=== PATIENT | female | born 1960 | race Caucasian/White ===

== ENCOUNTER 2016-07-25 15:03 | Emergency (ER) | payer BC ==
[2016-07-25 15:07] VITALS: BP 128/85; BMI 30.7
--- NOTE | 2016-07-25 15:15 | DR.GENAD ---
HPI - PCP Primary Care Physician: MOHSEN - HPI Comment HPI Comment: PATIENT DENIES INJURY. PAIN GETTING WORSE. - Complaint/Symptoms Chief Complaint Doctors Comments: RIGHT RIB PAIN TIMES 5 DAYS. Chief Complaint:: PT. C/O LEFT SIDED RIB PAIN X 5 DAYS. PT. DENIES INJURY. PT. SAYS THE PAIN HAS WORSENED SINCE ONSET AND WHEN SHE BENDS OVER, IT FEELS LIKE SOMETHING IS POPPING. - Nurses notes reviewed Nurses Notes Review: Yes - Source History Provided: Patient - Mode of Arrival Mode of Arrival: Ambulatory - Timing Onset of Chief Complaint: 07/20/16 Came on: Suddenly - Duration Duration: Constant Duration: Days - Severity Severity: Moderate PMH - PMH Past Medical History: Yes Past Medical History: Arthritis, Diabetes, Hypertension Past Surgical History: Yes Surgical History: Cholecystectomy, Hysterectomy, Tonsillectomy - Family History History of Family Medical Conditions: Yes Family Medical History: Diabetes Mellitus, Coronary Artery Disease, Hypertension - Social History Does patient currently use any type of tobacco product: No Have you used tobacco products in the last 12 months: No Type of Tobacco Use: None Does any household member use tobacco: No Alcohol Use: None Do you use any recreational Drugs:: No Lives With: Spouse Lives Where: Home - infectious screening In the last 2 months have you had wt loss of >10#?: NO Have you had fever, night sweats or hemotysis?: No Have you traveled outside the country in the last 6 months?: No Isolation: Standard ROS - Review of Systems Constitutional: No Symptoms Reported Eyes: No Symptoms Reported ENTM: No Symptoms Reported Respiratoy: Short of Breath. negative: Productive Cough, Non-Productive Cough, Wheezing, Hemoptysis Cardiovascular: Chest Pain (RT RIB PAIN). negative: Edema, Palpitations Gastrointestinal/Abdominal: No Symptoms Reported Genitourinary: No Symptoms Reported Neurological: No Symptoms Reported Musculoskeletal: No Symptoms Reported Integumentary: No Symptoms Reported Hematologic/Lymphatic: No Symptoms Reported Endocrine: No Symptoms Reported All Other Systems: Reviewed and Negative PE - Vital Signs Vitals: Temperature 98.0 F Pulse Rate 101 Respiratory Rate 17 Blood Pressure 128/85 O2 Sat by Pulse Oximetry 97 - General Limitations: No Limitations General Appearance: Alert - Head Head Exam: Normal Inspection - Eyes Eye exam: Normal Appearance - ENT ENT Exam: Normal External Ear Exam External Ear Exam: Normal External Inspection TM/Canal Exam: Bilateral Normal Nose Exam: Normal Nose Exam Mouth Exam: Normal Inspection Throat Exam: Normal Inspection - Neck Neck Exam: Trachea Midline - Chest Chest Inspection: Symmetric Chest Wall Rise, Tenderness - Respiratory Respiratory Exam: Normal Lung Sounds Bilat, Chest Wall Tenderness Respiratory Exam: Bilateral Clear to Auscultation - Cardiovascular Cardiovascular Exam: Regular Rate, Normal Rhythm, Normal Heart Sounds - Abdominal Exam Abdominal Exam: Normal Bowel Sounds, Soft, Tenderness Abdominal Tenderness: LUQ - Extremities Extremities Exam: Normal Inspection - Back Back Exam: Normal Inspection - Neurologic Neurological Exam: Alert, Oriented X3 - Psychiatric Psychiatric Exam: Normal Affect, Normal Mood - Skin Skin Exam: Normal Color [facility] - Additional Information Additional Information Obtained From: Family - Differential Diagnosis Differential Diagnosis: LEFT RIB PAIN, [place], PNEUMONIA,PNEUMOTHORAX Course - Treatment Treatment: SEE ORDERS. IM TORADOL FOR PAIN, IMPROVING. - Education/Counseling Education/Counseling: Patient, Education Educated On: Treatment, Diagnosis, Needs for Follow Up ROR - Labs Reviewed Laboratory Results Reviewed?: Yes Result Diagrams: 07/25/16 17:08 07/25/16 17:08 Laboratory: WBC 12.7 X10^3/uL (3.6-10.0) H 07/25/16 17:08 RBC 5.00 X10^6/uL (3.5-5.4) 07/25/16 17:08 Hgb 13.8 g/dL (12.0-16.0) 07/25/16 17:08 Hct 41.0 % (36.0-47.0) 07/25/16 17:08 MCV 82.1 fL (80.0-100.0) 07/25/16 17:08 MCH 27.6 pg (27.0-34.0) 07/25/16 17:08 MCHC 33.7 g/dL (33.0-35.0) 07/25/16 17:08 RDW 13.9 % (11.6-16.5) 07/25/16 17:08 Plt Count 290 X10^3/uL (150.0-450.0) 07/25/16 17:08 MPV 8.3 fL (7.4-11.0) 07/25/16 17:08 Neut % 63.4 % (42.0-75.0) 07/25/16 17:08 Lymph % 28.3 % (21.0-51.0) 07/25/16 17:08 [place] % 6.1 % (0.0-13.0) 07/25/16 17:08 Eos % 1.4 % (0.9-2.9) 07/25/16 17:08 Baso % 0.8 % (0.2-1.0) 07/25/16 17:08 Neut # 8.1 x10^3/uL (2.2-4.8) H 07/25/16 17:08 Lymph # 3.6 X10^3/uL (1.3-2.9) H 07/25/16 17:08 [place] # 0.8 x10^3/uL (0.3-0.8) 07/25/16 17:08 Eos # 0.2 x10^3/uL (0.0-0.2) 07/25/16 17:08 Baso # 0.1 X10^3/uL (0.0-0.1) 07/25/16 17:08 Absolute Nucleated RBC 0.0 /100WBC 07/25/16 17:08 Sodium 141 mmol/L (136-145) 07/25/16 17:08 Corrected Sodium TNP 07/25/16 17:08 Potassium 4.5 mmol/L (3.5-5.1) 07/25/16 17:08 Chloride 103 mmol/L (98-107) 07/25/16 17:08 Carbon Dioxide 27.0 mmol/L (21-32) 07/25/16 17:08 BUN 27 mg/dL (7-18) H 07/25/16 17:08 Creatinine 1.14 mg/dL (0.55-1.02) H 07/25/16 17:08 Est GFR (MDRD) Af Amer > 60 (>60) 07/25/16 17:08 Est GFR (MDRD) Non-Af 52 (>60) L 07/25/16 17:08 Glucose 100 mg/dL (65-99) H 07/25/16 17:08 Calcium 9.3 mg/dL (8.5-10.1) 07/25/16 17:08 Corrected Calcium TNP 07/25/16 17:08 Total Bilirubin 0.40 mg/dL (0.2-1.0) 07/25/16 17:08 AST 18 Units/L (15-37) 07/25/16 17:08 ALT 21 Units/L (12-78) 07/25/16 17:08 Alkaline Phosphatase 102 Units/L (46-116) 07/25/16 17:08 Total Protein 8.1 g/dL (6.4-8.2) 07/25/16 17:08 Albumin 4.3 g/dL (3.4-5.0) 07/25/16 17:08 Globulin 3.8 g/dL (2.5-4.5) 07/25/16 17:08 Albumin/Globulin Ratio 1.1 Ratio (1.1-2.1) 07/25/16 17:08 Amylase 40 Units/L (25-115) 07/25/16 17:08 Lipase 99 Units/L (73-393) 07/25/16 17:08 Specimen Type Clean catch urine 07/25/16 17:24 Urine Color Yellow (YELLOW) 07/25/16 17:24 Urine Appearance Clear (CLEAR) 07/25/16 17:24 Urine pH 5.0 (5.0 - 8.0) 07/25/16 17:24 Ur Specific [place] 1.015 (1.000-1.030) 07/25/16 17:24 Urine Protein Negative (NEGATIVE) 07/25/16 17:24 Urine Glucose (UA) Negative (NEGATIVE) 07/25/16 17:24 Urine Ketones Negative (NEGATIVE) 07/25/16 17:24 Urine Occult Blood Negative (NEGATIVE) 07/25/16 17:24 Urine Nitrite Negative (NEGATIVE) 07/25/16 17:24 Urine Bilirubin Negative (NEGATIVE) 07/25/16 17:24 Urine Urobilinogen Normal (NORMAL) 07/25/16 17:24 Ur Leukocyte Esterase Negative (NEGATIVE) 07/25/16 17:24 Urine RBC None seen /HPF (NEGATIVE) 07/25/16 17:24 Urine WBC None seen /HPF (NEGATIVE) 07/25/16 17:24 Ur Squamous Epith Cells Few /HPF (NEGATIVE) 07/25/16 17:24 Urine Bacteria Trace /HPF (NEGATIVE) 07/25/16 17:24 Ur Culture Indicated? No/not indicated 07/25/16 17:24 - XRAY XRAY Interpreted by: Radiologist XRAY Findings: REPORT DISCUSS WITH PATIENT. - EKG Rhythm: NSR (EKG NOTED.) - Diagnosis Discharge Problem: Chest wall pain Chest pain Qualifiers: Chest pain type: intercostal pain Qualified Code(s): R07.82 - Intercostal pain Abdominal pain Qualifiers: Abdominal location: left lower quadrant Qualified Code(s): R10.32 - Left lower quadrant pain - Discharge Plan Disposition: HOME, SELF-CARE Condition: Stable Prescriptions: Acetaminophen W/ Codeine [Tylenol/Codeine #3 300-30 mg] 1 tab PO Q6H PRN #15 tab PRN Reason: Pain Ibuprofen [MOTRIN TAB 600 MG *] 600 mg PO TID PRN #20 tab PRN Reason: Pain/Inflammation - Follow ups/Referrals Follow ups/Referrals: PRINCE CONNOLLY [Primary Care Provider] - 07/26/16 - Instructions Instructions: Chest Wall Pain, [id number], Pleurisy, [id number], Abdominal Pain, Adult, [id number] Additional Instructions: RETURN TO ED IF WORSE.
--- NOTE | 2016-07-25 16:54 | RAD ---
HISTORY: Left rib pain Study: Left ribs, PA chest four views total Comparison: None Findings: The heart is within normal limits in size. The geo are normal. The lung orellana are clear. No pneumo thorax or pleural effusion is identified. The left ribs are intact. IMPRESSION: Lungs clear Intact left ribs Reported By:
[2016-07-25 17:20] LABS: BASOPHILS # (AUTO) 0.1 X10^3/uL (0.0-0.1); BASOPHILS % (AUTO) 0.8 % (0.2-1.0); EOSINOPHILS # (AUTO) 0.2 x10^3/uL (0.0-0.2); EOSINOPHILS % (AUTO) 1.4 % (0.9-2.9); HEMOGLOBIN 13.8 g/dL (12.0-16.0); LYMPHOCYTES # (AUTO) 3.6 X10^3/uL (1.3-2.9); LYMPHOCYTES % (AUTO) 28.3 % (21.0-51.0); MEAN CORPUSCULAR HEMOGLOBIN 27.6 pg (27.0-34.0); MEAN CORPUSCULAR HGB CONC 33.7 g/dL (33.0-35.0); MEAN CORPUSCULAR VOLUME 82.1 fL (80.0-100.0); MEAN PLATELET VOLUME 8.3 fL (7.4-11.0); MONOCYTES # (AUTO) 0.8 x10^3/uL (0.3-0.8); MONOCYTES % (AUTO) 6.1 % (0.0-13.0); NEUTROPHILS # (AUTO) 8.1 x10^3/uL (2.2-4.8); NEUTROPHILS % (AUTO) 63.4 % (42.0-75.0); PLATELET COUNT 290 X10^3/uL (150.0-450.0); RED CELL DISTRIBUTION WIDTH 13.9 % (11.6-16.5); WHITE BLOOD COUNT 12.7 X10^3/uL (3.6-10.0)
[2016-07-25] MEDS ORDERED: TORADOL 60 MG VIAL IM ONE (17:26)
[2016-07-25] MEDS ORDERED: TORADOL 60 MG VIAL ONE (17:28)
[2016-07-25 17:32] LABS: ALANINE AMINOTRANSFERASE 21 Units/L (12-78); ALBUMIN 4.3 g/dL (3.4-5.0); ALKALINE PHOSPHATASE 102 Units/L (46-116); AMYLASE 40 Units/L (25-115); ASPARTATE AMINO TRANSFERASE 18 Units/L (15-37); BLOOD UREA NITROGEN 27 mg/dL (7-18); CALCIUM 9.3 mg/dL (8.5-10.1); CHLORIDE 103 mmol/L (98-107); CREATININE 1.14 mg/dL (0.55-1.02); GLUCOSE 100 mg/dL (65-99); LIPASE 99 Units/L (73-393); SODIUM 141 mmol/L (136-145); TOTAL PROTEIN 8.1 g/dL (6.4-8.2); eGFR BLACK RACES > 60 (>60); eGFR NON BLACK RACES 52 (>60)
[2016-07-25 17:43] LABS: BILIRUBIN,URINE NEGATIVE (NEGATIVE); BLOOD/HEMOGLOBIN,URINE NEGATIVE (NEGATIVE); GLUCOSE, URINE NEGATIVE (NEGATIVE); KETONES,URINE NEGATIVE (NEGATIVE); LEUKOCYTE ESTERASE ,URINE NEGATIVE (NEGATIVE); NITRITES,URINE NEGATIVE (NEGATIVE); PROTEIN,URINE NEGATIVE (NEGATIVE); UROBILINOGEN,URINE NORMAL (NORMAL)
[2016-07-25 17:58] LABS: APPEARANCE,URINE CLEAR (CLEAR); BACTERIA,URINE TRACE /HPF (NEGATIVE); COLOR,URINE YELLOW (YELLOW); RBC,URINE NONE SEEN /HPF (NEGATIVE); SQUAMOUS EPITHELIAL CELL,UR FEW /HPF (NEGATIVE)
== END 2016-07-25 18:36 | disposition home or self-care (01) ==
LOC: ER 15:03
DX: R07.89 Other chest pain (principal); R07.82 Intercostal pain; R10.32 Left lower quadrant pain
CPT/HCPCS: 36415; 71111; 80053; 81001; 82150; 83690; 85025; 96372; 99283; J1885